=== PATIENT | female | born 1935 | race Caucasian/White ===

== ENCOUNTER 2018-09-13 09:03 | Observation (INO) | payer MEDICARE ==
[2018-09-13] MEDS: morphine 2 MG INJ IV (11:37)
[2018-09-13] MEDS: ONDANSETRON 4 MG INJ IV (11:37)
[2018-09-13 11:58] LABS: ADD MAN DIFF? NO
[2018-09-13 12:01] LABS: WHITE BLOOD COUNT 7.1 10^3/ul (4.8-10.8)
[2018-09-13 12:01] LABS: BASOPHILS % 0.4 % (0.0-2.0); EOSINOPHILS # 0.1 10^3/ul (0.0-0.5); HEMATOCRIT 39.8 % (37.0-47.0); HEMOGLOBIN 12.7 g/dl (12.0-16.0); LYMPHOCYTES # 1.6 10^3/ul (0.8-2.9); LYMPHOCYTES % 23.1 % (15.0-51.0); MEAN CORPUSCULAR HEMOGLOBIN 30.6 pg (29.0-33.0); MEAN CORPUSCULAR HGB CONC 31.9 g/dl (32.0-37.0); MEAN CORPUSCULAR VOLUME 95.9 fl (82.0-101.0); MEAN PLATELET VOLUME 10.6 fl (7.4-10.4); MONOCYTE # 0.9 10^3/ul (0.3-0.9); NEUTROPHIL # 4.4 10^3/ul (1.6-7.5); NEUTROPHILS % 61.8 % (39.0-77.0); PLATELET COUNT 324 10^3/UL (140-415); RED BLOOD COUNT 4.15 10^6/ul (4.20-5.40); RED CELL DISTRIBUTION WIDTH 13.2 % (11.5-14.5)
[2018-09-13 12:07] LABS: ANION GAP 12 (5-13); BLOOD UREA NITROGEN 22 mg/dl (7-20); CALCIUM 10.5 mg/dl (8.4-10.2); CARBON DIOXIDE 23 mmol/L (21-31); CHLORIDE 106 mmol/L (97-110); GLUCOSE 178 mg/dl (70-220); POTASSIUM 5.2 mmol/L (3.5-5.1); SODIUM 141 mmol/L (135-144)
[2018-09-13] MEDS ORDERED: MAGNESIUM HYDROXIDE 30ML CUP PO (14:30)
[2018-09-13] MEDS ORDERED: NACL 0.9% 3 ML SYG IV (14:30)
[2018-09-13] MEDS ORDERED: NITROGLYCERIN (SL) 0.4 MG TAB SL (14:30)
[2018-09-13] MEDS ORDERED: DOCUSATE SODIUM 100 MG CAP PO (14:30)
[2018-09-13] MEDS ORDERED: ACETAMINOPHEN 325 MG TAB PO (14:30)
[2018-09-13 14:42] LABS: ADD UMIC YES; UR ASCORBIC ACID NEGATIVE (NEGATIVE); UR BILIRUBIN (Dip) NEGATIVE (NEGATIVE); UR BLOOD (Dip) NEGATIVE (NEGATIVE); UR BUDDING YEAST FEW /HPF (NONE SEEN); UR CLARITY CLEAR (CLEAR); UR COLOR COLORLESS (YELLOW); UR GLUCOSE (Dip) 3+ mg/dL (NEGATIVE); UR KETONES (Dip) NEGATIVE (NEGATIVE); UR LEUKOCYTE ESTERASE (Dip) TRACE Leu/ul (NEGATIVE); UR NITRITE (Dip) NEGATIVE (NEGATIVE); UR RBC 1 /HPF (0-5); UR SPECIFIC GRAVITY (Dip) 1.011 (1.003-1.030); UR TOTAL PROTEIN (Dip) NEGATIVE (NEGATIVE); UR UROBILINOGEN (Dip) NEGATIVE (NEGATIVE); UR WBC 17 /HPF (0-5)
[2018-09-13] MEDS ORDERED: GLUCAGON 1 MG INJ IM (15:30)
[2018-09-13] MEDS ORDERED: GLUCOSE GEL 15 GRAM TUBE PO (15:30)
[2018-09-13] MEDS ORDERED: GLUCOSE GEL 15 GRAM TUBE BUCCAL (15:30)
[2018-09-13] MEDS ORDERED: DEXTROSE 50% 50 ML SYRINGE IV ×2 (15:30)
[2018-09-13] MEDS: INSULIN ASPART [NOVOLOG] 3 ML PEN SC ×2 (18:00→21:16)
[2018-09-13] MEDS: ACCU-CHEK XX ×3 (18:05→21:00)
[2018-09-13] MEDS: metFORMIN 500 MG TAB PO (18:06)
[2018-09-13] MEDS: ATORVASTATIN 40 MG TAB PO (18:34)
[2018-09-13] MEDS: REPAGLINIDE 2 MG TAB PO (18:34)
[2018-09-13] MEDS: HYDROCODONE/APAP (5/325) TAB PO (21:07)
[2018-09-13] MEDS: TOLTERODINE (SR) 4 MG CAP PO (21:12)
[2018-09-13] MEDS: FAMOTIDINE 20 MG TAB PO (21:13)
[2018-09-13] MEDS: AZATHIOPRINE 50 MG TAB PO (21:13)
[2018-09-13] MEDS: HEPARIN 5,000 UNIT/1 ML VIAL SC (21:14)
[2018-09-13] MEDS: INSULIN GLARGINE [LANTus] (100 UNITS/ML) SYG SC (21:15)
[2018-09-13] MEDS: LISINOPRIL 20 MG TAB PO (21:20)
[2018-09-13] MEDS: AMLODIPINE 5 MG TAB PO (21:20)
[2018-09-13] MEDS: DIAZEPAM 5 MG TAB PO (22:30)
[2018-09-13] MEDS: LIOTHYRONINE 25 MCG TAB PO (22:30)
[2018-09-14] MEDS: ACCU-CHEK XX ×8 (02:00→21:00)
[2018-09-14] MEDS: ACETAMINOPHEN 325 MG TAB PO (02:49)
[2018-09-14 06:09] LABS: ADD MAN DIFF? NO
[2018-09-14 06:23] LABS: WHITE BLOOD COUNT 5.4 10^3/ul (4.8-10.8)
[2018-09-14 06:23] LABS: BASOPHILS % 0.6 % (0.0-2.0); EOSINOPHILS # 0.1 10^3/ul (0.0-0.5); EOSINOPHILS % 1.8 % (0.0-7.0); HEMATOCRIT 35.6 % (37.0-47.0); HEMOGLOBIN 11.5 g/dl (12.0-16.0); LYMPHOCYTES # 1.3 10^3/ul (0.8-2.9); LYMPHOCYTES % 23.4 % (15.0-51.0); MEAN CORPUSCULAR HGB CONC 32.3 g/dl (32.0-37.0); MEAN PLATELET VOLUME 10.7 fl (7.4-10.4); MONOCYTES % 17.5 % (0.0-11.0); PLATELET COUNT 274 10^3/UL (140-415); RED BLOOD COUNT 3.71 10^6/ul (4.20-5.40); RED CELL DISTRIBUTION WIDTH 12.9 % (11.5-14.5)
[2018-09-14] MEDS: LEVOTHYROXINE 75 MCG TAB PO (06:37)
[2018-09-14] MEDS: HYDROCHLOROTHIAZIDE 12.5 MG CAP PO (06:37)
[2018-09-14] MEDS: CYANOCOBALAMIN 500 MCG TAB PO (06:37)
[2018-09-14 06:49] LABS: ALANINE AMINOTRANSFERASE 9 IU/L (13-69); ALBUMIN 3.8 g/dl (3.3-4.9); ALBUMIN/GLOBULIN RATIO 1.18; ALKALINE PHOSPHATASE 42 IU/L (42-121); ANION GAP 11 (5-13); ASPARTATE AMINO TRANSFERASE 27 IU/L (15-46); BILIRUBIN,INDIRECT 0.2 mg/dl (0-1.1); BILIRUBIN,TOTAL 0.2 mg/dl (0.2-1.3); BLOOD UREA NITROGEN 24 mg/dl (7-20); CALCIUM 9.4 mg/dl (8.4-10.2); CARBON DIOXIDE 24 mmol/L (21-31); CHLORIDE 104 mmol/L (97-110); CREATININE 1.44 mg/dl (0.44-1.00); GLUCOSE 124 mg/dl (70-220); POTASSIUM 4.7 mmol/L (3.5-5.1); SODIUM 139 mmol/L (135-144)
[2018-09-14 07:26] LABS: HEMOGLOBIN A1C 13.5 % (0-5.9)
[2018-09-14] MEDS: REPAGLINIDE 2 MG TAB PO ×3 (08:00→17:49)
[2018-09-14] MEDS: INSULIN ASPART [NOVOLOG] 3 ML PEN SC ×4 (08:00→21:00)
[2018-09-14] MEDS: metFORMIN 500 MG TAB PO ×3 (08:00→17:49)
[2018-09-14] MEDS ORDERED: COPPER GLUCONATE 2 MG PO (09:00)
[2018-09-14] MEDS ORDERED: CALCIUM CITRATE 950 MG XX (09:00)
[2018-09-14] MEDS: EMPAGLIFLOZIN 10 MG TABLET PO (09:21)
[2018-09-14] MEDS: AZATHIOPRINE 50 MG TAB PO ×2 (09:21→22:07)
[2018-09-14] MEDS: LINAGLIPTIN 5 MG TABLET PO (09:21)
[2018-09-14] MEDS: CALCIUM CARBONATE 1.25 GM TAB PO (09:22)
[2018-09-14] MEDS: AMLODIPINE 5 MG TAB PO ×2 (09:22→22:08)
[2018-09-14] MEDS: HEPARIN 5,000 UNIT/1 ML VIAL SC ×2 (09:24→22:17)
[2018-09-14] MEDS: LIOTHYRONINE 25 MCG TAB PO ×2 (09:24→22:08)
[2018-09-14] MEDS: predniSONE 1 MG TAB PO ×2 (09:26→09:28)
[2018-09-14] MEDS: SOD CHLORIDE 0.9% 1,000 ML IV ×2 (10:21→21:30)
[2018-09-14] MEDS: HYDROCODONE/APAP (5/325) TAB PO ×2 (16:37→22:09)
[2018-09-14] MEDS: ATORVASTATIN 40 MG TAB PO (22:07)
[2018-09-14] MEDS: FAMOTIDINE 20 MG TAB PO (22:07)
[2018-09-14] MEDS: TOLTERODINE (SR) 4 MG CAP PO (22:08)
[2018-09-14] MEDS: LISINOPRIL 20 MG TAB PO (22:09)
[2018-09-14] MEDS: INSULIN GLARGINE [LANTus] (100 UNITS/ML) SYG SC (22:19)
[2018-09-15] MEDS: SOD CHLORIDE 0.9% 1,000 ML IV ×4 (00:37→22:30)
[2018-09-15] MEDS: ACCU-CHEK XX ×8 (02:00→21:00)
[2018-09-15 05:27] LABS: ADD MAN DIFF? NO
[2018-09-15] MEDS: HYDROCODONE/APAP (5/325) TAB PO (05:31)
[2018-09-15 05:33] LABS: WHITE BLOOD COUNT 5.1 10^3/ul (4.8-10.8)
[2018-09-15 05:33] LABS: BASOPHILS % 0.2 % (0.0-2.0); EOSINOPHILS # 0.1 10^3/ul (0.0-0.5); EOSINOPHILS % 1.4 % (0.0-7.0); HEMOGLOBIN 10.9 g/dl (12.0-16.0); LYMPHOCYTES # 1.7 10^3/ul (0.8-2.9); LYMPHOCYTES % 32.4 % (15.0-51.0); MEAN CORPUSCULAR HEMOGLOBIN 31.1 pg (29.0-33.0); MEAN CORPUSCULAR HGB CONC 32.1 g/dl (32.0-37.0); MEAN CORPUSCULAR VOLUME 96.9 fl (82.0-101.0); MEAN PLATELET VOLUME 10.1 fl (7.4-10.4); MONOCYTES % 18.7 % (0.0-11.0); NEUTROPHIL # 2.4 10^3/ul (1.6-7.5); NEUTROPHILS % 46.7 % (39.0-77.0); PLATELET COUNT 275 10^3/UL (140-415); RED BLOOD COUNT 3.51 10^6/ul (4.20-5.40); RED CELL DISTRIBUTION WIDTH 12.8 % (11.5-14.5)
[2018-09-15 06:00] LABS: ANION GAP 11 (5-13); BLOOD UREA NITROGEN 28 mg/dl (7-20); CALCIUM 9.3 mg/dl (8.4-10.2); CARBON DIOXIDE 23 mmol/L (21-31); CHLORIDE 107 mmol/L (97-110); GLUCOSE 84 mg/dl (70-220); POTASSIUM 4.5 mmol/L (3.5-5.1); SODIUM 141 mmol/L (135-144)
[2018-09-15] MEDS: CYANOCOBALAMIN 500 MCG TAB PO (06:30)
[2018-09-15] MEDS: HYDROCHLOROTHIAZIDE 12.5 MG CAP PO (06:31)
[2018-09-15] MEDS: LEVOTHYROXINE 75 MCG TAB PO (06:31)
[2018-09-15] MEDS: INSULIN ASPART [NOVOLOG] 3 ML PEN SC ×4 (08:00→21:00)
[2018-09-15] MEDS: REPAGLINIDE 2 MG TAB PO ×3 (08:05→18:10)
[2018-09-15] MEDS: predniSONE 1 MG TAB PO (08:06)
[2018-09-15] MEDS: CALCIUM CARBONATE 1.25 GM TAB PO (08:06)
[2018-09-15] MEDS: metFORMIN 500 MG TAB PO ×3 (08:06→18:10)
[2018-09-15] MEDS: AZATHIOPRINE 50 MG TAB PO ×2 (08:06→21:27)
[2018-09-15] MEDS: LIOTHYRONINE 25 MCG TAB PO ×2 (08:06→21:25)
[2018-09-15] MEDS: EMPAGLIFLOZIN 10 MG TABLET PO (08:06)
[2018-09-15] MEDS: LINAGLIPTIN 5 MG TABLET PO (08:06)
[2018-09-15] MEDS: AMLODIPINE 5 MG TAB PO ×2 (08:07→21:27)
[2018-09-15] MEDS: HEPARIN 5,000 UNIT/1 ML VIAL SC ×2 (08:12→21:43)
[2018-09-15] MEDS ORDERED: TOVIAZ 8 MG PO (21:00)
[2018-09-15] MEDS: ATORVASTATIN 40 MG TAB PO (21:25)
[2018-09-15] MEDS: LISINOPRIL 20 MG TAB PO (21:27)
[2018-09-15] MEDS: FAMOTIDINE 20 MG TAB PO (21:27)
[2018-09-15] MEDS: TOVIAZ 8 MG PO (21:32)
[2018-09-15] MEDS: INSULIN GLARGINE [LANTus] (100 UNITS/ML) SYG SC (21:40)
[2018-09-16] MEDS: TOVIAZ 8 MG PO ×2 (00:40→21:06)
[2018-09-16] MEDS: ACCU-CHEK XX ×8 (02:00→21:00)
[2018-09-16] MEDS: SOD CHLORIDE 0.9% 1,000 ML IV ×2 (02:07→11:00)
[2018-09-16] MEDS: HYDROCODONE/APAP (5/325) TAB PO ×2 (02:16→13:46)
[2018-09-16 05:45] LABS: ADD MAN DIFF? NO
[2018-09-16 05:53] LABS: BASOPHILS % 0.3 % (0.0-2.0); EOSINOPHILS # 0.1 10^3/ul (0.0-0.5); EOSINOPHILS % 1.1 % (0.0-7.0); HEMATOCRIT 33.9 % (37.0-47.0); HEMOGLOBIN 10.9 g/dl (12.0-16.0); LYMPHOCYTES # 1.4 10^3/ul (0.8-2.9); LYMPHOCYTES % 23.5 % (15.0-51.0); MEAN CORPUSCULAR HEMOGLOBIN 31.1 pg (29.0-33.0); MEAN CORPUSCULAR HGB CONC 32.2 g/dl (32.0-37.0); MEAN CORPUSCULAR VOLUME 96.9 fl (82.0-101.0); MEAN PLATELET VOLUME 10.6 fl (7.4-10.4); MONOCYTES % 16.8 % (0.0-11.0); NEUTROPHIL # 3.6 10^3/ul (1.6-7.5); PLATELET COUNT 220 10^3/UL (140-415); RED CELL DISTRIBUTION WIDTH 12.8 % (11.5-14.5)
[2018-09-16 05:53] LABS: WHITE BLOOD COUNT 6.1 10^3/ul (4.8-10.8)
[2018-09-16] MEDS: LEVOTHYROXINE 75 MCG TAB PO (06:01)
[2018-09-16] MEDS: CYANOCOBALAMIN 500 MCG TAB PO (06:01)
[2018-09-16] MEDS: HYDROCHLOROTHIAZIDE 12.5 MG CAP PO (06:07)
[2018-09-16 06:49] LABS: ANION GAP 13 (5-13); BLOOD UREA NITROGEN 23 mg/dl (7-20); CALCIUM 9.9 mg/dl (8.4-10.2); CARBON DIOXIDE 20 mmol/L (21-31); CHLORIDE 108 mmol/L (97-110); CREATININE 0.97 mg/dl (0.44-1.00); GLUCOSE 86 mg/dl (70-220); POTASSIUM 4.2 mmol/L (3.5-5.1); SODIUM 141 mmol/L (135-144)
[2018-09-16] MEDS: INSULIN ASPART [NOVOLOG] 3 ML PEN SC ×4 (08:00→21:00)
[2018-09-16] MEDS: metFORMIN 500 MG TAB PO ×3 (08:50→18:00)
[2018-09-16] MEDS: REPAGLINIDE 2 MG TAB PO ×3 (08:50→17:30)
[2018-09-16] MEDS: CALCIUM CARBONATE 1.25 GM TAB PO (08:50)
[2018-09-16] MEDS: LINAGLIPTIN 5 MG TABLET PO (08:50)
[2018-09-16] MEDS: AZATHIOPRINE 50 MG TAB PO ×2 (08:51→21:06)
[2018-09-16] MEDS: EMPAGLIFLOZIN 10 MG TABLET PO (08:51)
[2018-09-16] MEDS: AMLODIPINE 5 MG TAB PO ×2 (08:51→21:00)
[2018-09-16] MEDS: predniSONE 1 MG TAB PO (08:52)
[2018-09-16] MEDS: LIOTHYRONINE 25 MCG TAB PO ×2 (08:52→21:06)
[2018-09-16] MEDS: HEPARIN 5,000 UNIT/1 ML VIAL SC ×2 (08:53→21:10)
[2018-09-16] MEDS: ONDANSETRON 4 MG TAB PO (17:59)
[2018-09-16] MEDS: GLUCOSE GEL 15 GRAM TUBE PO (18:30)
[2018-09-16] MEDS: LISINOPRIL 20 MG TAB PO (21:00)
[2018-09-16] MEDS ORDERED: TOVIAZ 8 MG PO (21:00)
[2018-09-16] MEDS: ATORVASTATIN 40 MG TAB PO (21:07)
[2018-09-16] MEDS: FAMOTIDINE 20 MG TAB PO (21:07)
[2018-09-16] MEDS: INSULIN GLARGINE [LANTus] (100 UNITS/ML) SYG SC (21:09)
[2018-09-17] MEDS: ACCU-CHEK XX ×5 (02:00→14:00)
[2018-09-17] MEDS: LEVOTHYROXINE 75 MCG TAB PO (06:10)
[2018-09-17] MEDS: SOD CHLORIDE 0.9% 1,000 ML IV (06:10)
[2018-09-17] MEDS: CYANOCOBALAMIN 500 MCG TAB PO (06:10)
[2018-09-17] MEDS: INSULIN ASPART [NOVOLOG] 3 ML PEN SC ×2 (08:00→13:25)
[2018-09-17] MEDS: predniSONE 1 MG TAB PO (09:12)
[2018-09-17] MEDS: CALCIUM CARBONATE 1.25 GM TAB PO (09:12)
[2018-09-17] MEDS: LIOTHYRONINE 25 MCG TAB PO (09:12)
[2018-09-17] MEDS: EMPAGLIFLOZIN 10 MG TABLET PO (09:13)
[2018-09-17] MEDS: metFORMIN 500 MG TAB PO (09:13)
[2018-09-17] MEDS: REPAGLINIDE 1 MG TAB PO ×2 (09:13→13:23)
[2018-09-17] MEDS: LINAGLIPTIN 5 MG TABLET PO (09:14)
[2018-09-17] MEDS: AZATHIOPRINE 50 MG TAB PO (09:14)
[2018-09-17] MEDS: AMLODIPINE 5 MG TAB PO (09:15)
[2018-09-17] MEDS: HEPARIN 5,000 UNIT/1 ML VIAL SC (09:17)
[2018-09-17] MEDS: TRIMETHOBENZAMIDE 100 MG/ML VIAL IM (16:23)
== END 2018-09-17 17:05 ==
LOC: E/R 09:03 → 2NE 14:19
DX: S20.212A Contusion of left front wall of thorax, initial encounter (principal); R42 Dizziness and giddiness; I10 Essential (primary) hypertension; E78.5 Hyperlipidemia, unspecified; E11.9 Type 2 diabetes mellitus without complications; E03.9 Hypothyroidism, unspecified; Z79.4 Long term (current) use of insulin; Z79.82 Long term (current) use of aspirin; E86.0 Dehydration; N17.9 Acute kidney failure, unspecified; L94.8 Other specified localized connective tissue disorders; N39.41 Urge incontinence; W19.XXXA Unspecified fall, initial encounter
CPT/HCPCS: 70450; 70552; 71046; 71250; 72125; 72146; 72148; 72156; 80048; 80053; 81001; 82962; 83036; 84443; 85025; 87086; 93005; 96374; 96375; 97116; 97163; 97167; 97530; 99217; 99285-25; G0378

== ENCOUNTER 2018-09-17 17:10 | Inpatient (IN) | payer MEDICARE ==
[2018-09-17] MEDS ORDERED: ONDANSETRON (ODT) 4 MG TAB ODT (18:00)
[2018-09-17] MEDS ORDERED: ACETAMINOPHEN 325 MG TAB PO (18:00)
[2018-09-17] MEDS ORDERED: LOPERAMIDE 2 MG CAP PO (18:00)
[2018-09-17] MEDS ORDERED: LACTULOSE 30ML CUP PO (18:00)
[2018-09-17] MEDS ORDERED: MAGNESIUM HYDROXIDE 30ML CUP PO (18:00)
[2018-09-17] MEDS ORDERED: PENDING SANTYL ORDER FOR WOUND CARE XX (18:00)
[2018-09-17] MEDS ORDERED: BISACODYL 10 MG SUPP PR (18:00)
[2018-09-17] MEDS ORDERED: DEXTROSE 50% 50 ML SYRINGE IV ×2 (20:00)
[2018-09-17] MEDS ORDERED: GLUCOSE GEL 15 GRAM TUBE BUCCAL (20:00)
[2018-09-17] MEDS ORDERED: GLUCAGON 1 MG INJ IM (20:00)
[2018-09-17] MEDS ORDERED: GLUCOSE GEL 15 GRAM TUBE PO ×2 (20:00)
[2018-09-17] MEDS: HYDROCODONE/APAP (5/325) TAB PO (20:40)
[2018-09-17] MEDS: ACCU-CHEK XX (22:00)
[2018-09-17] MEDS: INSULIN ASPART [NOVOLOG] 3 ML PEN SC (22:00)
[2018-09-17] MEDS: SENNA TAB PO (22:00)
[2018-09-17] MEDS: AZATHIOPRINE 50 MG TAB PO (22:19)
[2018-09-17] MEDS: LIOTHYRONINE 25 MCG TAB PO (22:20)
[2018-09-17] MEDS: TOVIAZ 8 MG PO (22:21)
[2018-09-17] MEDS: ATORVASTATIN 40 MG TAB PO (22:22)
[2018-09-17] MEDS: AMLODIPINE 5 MG TAB PO (22:25)
[2018-09-17] MEDS: LISINOPRIL 20 MG TAB PO (22:26)
[2018-09-17] MEDS: HEPARIN 5,000 UNIT/1 ML VIAL SC (22:27)
[2018-09-17] MEDS: INSULIN GLARGINE [LANTus] (100 UNITS/ML) SYG SC (22:51)
[2018-09-18] MEDS ORDERED: NITROGLYCERIN (SL) 0.4 MG TAB SL (00:30)
[2018-09-18 00:49] LABS: ADD UMIC YES; UR ASCORBIC ACID NEGATIVE (NEGATIVE); UR BACTERIA FEW /HPF (NONE SEEN); UR BILIRUBIN (Dip) NEGATIVE (NEGATIVE); UR BLOOD (Dip) 1+ mg/dL (NEGATIVE); UR BUDDING YEAST MANY /HPF (NONE SEEN); UR CLARITY SLIGHTLY CLOUDY (CLEAR); UR COLOR YELLOW (YELLOW); UR GLUCOSE (Dip) 3+ mg/dL (NEGATIVE); UR KETONES (Dip) TRACE mg/dL (NEGATIVE); UR LEUKOCYTE ESTERASE (Dip) 2+ Leu/ul (NEGATIVE); UR NITRITE (Dip) NEGATIVE (NEGATIVE); UR RBC 2 /HPF (0-5); UR SPECIFIC GRAVITY (Dip) 1.012 (1.003-1.030); UR TOTAL PROTEIN (Dip) NEGATIVE (NEGATIVE); UR UROBILINOGEN (Dip) NEGATIVE (NEGATIVE); UR WBC 44 /HPF (0-5)
[2018-09-18] MEDS ORDERED: DOCUSATE SODIUM 100 MG CAP PO (02:00)
[2018-09-18] MEDS: LEVOTHYROXINE 75 MCG TAB PO (06:36)
[2018-09-18 06:59] LABS: ADD MAN DIFF? NO
[2018-09-18 07:11] LABS: BASOPHILS % 0.3 % (0.0-2.0); EOSINOPHILS # 0.1 10^3/ul (0.0-0.5); EOSINOPHILS % 1.7 % (0.0-7.0); HEMATOCRIT 36.5 % (37.0-47.0); HEMOGLOBIN 11.4 g/dl (12.0-16.0); LYMPHOCYTES # 1.6 10^3/ul (0.8-2.9); LYMPHOCYTES % 26.1 % (15.0-51.0); MEAN CORPUSCULAR HEMOGLOBIN 30.6 pg (29.0-33.0); MEAN CORPUSCULAR HGB CONC 31.2 g/dl (32.0-37.0); MEAN CORPUSCULAR VOLUME 98.1 fl (82.0-101.0); NEUTROPHIL # 3.3 10^3/ul (1.6-7.5); NEUTROPHILS % 54.4 % (39.0-77.0); PLATELET COUNT 304 10^3/UL (140-415); RED BLOOD COUNT 3.72 10^6/ul (4.20-5.40); RED CELL DISTRIBUTION WIDTH 12.7 % (11.5-14.5)
[2018-09-18 07:22] LABS: ALANINE AMINOTRANSFERASE 19 IU/L (13-69); ALBUMIN 3.8 g/dl (3.3-4.9); ALBUMIN/GLOBULIN RATIO 1.18; ALKALINE PHOSPHATASE 56 IU/L (42-121); ANION GAP 10 (5-13); ASPARTATE AMINO TRANSFERASE 51 IU/L (15-46); BILIRUBIN,INDIRECT 0.2 mg/dl (0-1.1); BILIRUBIN,TOTAL 0.2 mg/dl (0.2-1.3); BLOOD UREA NITROGEN 29 mg/dl (7-20); CALCIUM 9.7 mg/dl (8.4-10.2); CARBON DIOXIDE 27 mmol/L (21-31); CHLORIDE 104 mmol/L (97-110); CREATININE 1.11 mg/dl (0.44-1.00); GLUCOSE 157 mg/dl (70-220); POTASSIUM 4.6 mmol/L (3.5-5.1); SODIUM 141 mmol/L (135-144)
[2018-09-18] MEDS: LIOTHYRONINE 25 MCG TAB PO ×4 (09:00→20:31)
[2018-09-18] MEDS: predniSONE 1 MG TAB PO (09:01)
[2018-09-18] MEDS: AMLODIPINE 5 MG TAB PO ×2 (09:01→21:26)
[2018-09-18] MEDS: CYANOCOBALAMIN 500 MCG TAB PO (09:02)
[2018-09-18] MEDS: CALCIUM CARBONATE 1.25 GM TAB PO (09:02)
[2018-09-18] MEDS: LINAGLIPTIN 5 MG TABLET PO (09:02)
[2018-09-18] MEDS: REPAGLINIDE 1 MG TAB PO ×3 (09:02→18:54)
[2018-09-18] MEDS: ACCU-CHEK XX ×4 (09:03→21:32)
[2018-09-18] MEDS: metFORMIN 500 MG TAB PO ×2 (09:03→18:54)
[2018-09-18] MEDS: INSULIN ASPART [NOVOLOG] 3 ML PEN SC ×4 (09:04→21:00)
[2018-09-18] MEDS: EMPAGLIFLOZIN 10 MG TABLET PO (09:05)
[2018-09-18] MEDS: HEPARIN 5,000 UNIT/1 ML VIAL SC ×2 (09:05→21:29)
[2018-09-18] MEDS: AZATHIOPRINE 50 MG TAB PO ×2 (09:06→21:26)
[2018-09-18] MEDS: HYDROCODONE/APAP (5/325) TAB PO ×2 (09:11→18:58)
[2018-09-18] MEDS: SENNA TAB PO (21:00)
[2018-09-18] MEDS: LISINOPRIL 20 MG TAB PO (21:25)
[2018-09-18] MEDS: ATORVASTATIN 40 MG TAB PO (21:26)
[2018-09-18] MEDS: TOVIAZ 8 MG PO (21:26)
[2018-09-18] MEDS: INSULIN GLARGINE [LANTus] (100 UNITS/ML) SYG SC (21:30)
[2018-09-19] MEDS: LEVOTHYROXINE 75 MCG TAB PO (06:49)
[2018-09-19] MEDS: ACCU-CHEK XX ×4 (07:49→21:00)
[2018-09-19] MEDS: metFORMIN 500 MG TAB PO ×2 (07:51→18:13)
[2018-09-19] MEDS: LIOTHYRONINE 25 MCG TAB PO ×3 (07:53→19:43)
[2018-09-19] MEDS: EMPAGLIFLOZIN 10 MG TABLET PO (07:53)
[2018-09-19] MEDS: INSULIN ASPART [NOVOLOG] 3 ML PEN SC ×4 (07:57→21:00)
[2018-09-19] MEDS: LINAGLIPTIN 5 MG TABLET PO (08:04)
[2018-09-19] MEDS: REPAGLINIDE 1 MG TAB PO ×3 (08:04→18:13)
[2018-09-19] MEDS: CALCIUM CARBONATE 1.25 GM TAB PO (09:00)
[2018-09-19] MEDS: predniSONE 1 MG TAB PO (11:10)
[2018-09-19] MEDS: AMLODIPINE 5 MG TAB PO ×2 (11:10→20:57)
[2018-09-19] MEDS: HYDROCODONE/APAP (5/325) TAB PO (11:10)
[2018-09-19] MEDS: AZATHIOPRINE 50 MG TAB PO ×2 (11:10→20:52)
[2018-09-19] MEDS: CYANOCOBALAMIN 500 MCG TAB PO (11:10)
[2018-09-19] MEDS: HEPARIN 5,000 UNIT/1 ML VIAL SC ×2 (11:15→21:06)
[2018-09-19] MEDS: SENNA TAB PO (20:52)
[2018-09-19] MEDS: LISINOPRIL 20 MG TAB PO (20:54)
[2018-09-19] MEDS: ATORVASTATIN 40 MG TAB PO (20:57)
[2018-09-19] MEDS: TOVIAZ 8 MG PO (20:58)
[2018-09-19] MEDS: INSULIN GLARGINE [LANTus] (100 UNITS/ML) SYG SC (21:06)
[2018-09-20] MEDS: LEVOTHYROXINE 75 MCG TAB PO (06:03)
[2018-09-20] MEDS: ACCU-CHEK XX ×4 (07:05→21:00)
[2018-09-20] MEDS: INSULIN ASPART [NOVOLOG] 3 ML PEN SC ×4 (07:35→21:00)
[2018-09-20] MEDS: AZATHIOPRINE 50 MG TAB PO ×2 (08:40→21:21)
[2018-09-20] MEDS: CALCIUM CARBONATE 1.25 GM TAB PO (08:40)
[2018-09-20] MEDS: metFORMIN 500 MG TAB PO ×2 (08:40→16:41)
[2018-09-20] MEDS: EMPAGLIFLOZIN 10 MG TABLET PO (08:41)
[2018-09-20] MEDS: CYANOCOBALAMIN 500 MCG TAB PO (08:41)
[2018-09-20] MEDS: AMLODIPINE 5 MG TAB PO ×2 (08:42→21:33)
[2018-09-20] MEDS: LINAGLIPTIN 5 MG TABLET PO (08:42)
[2018-09-20] MEDS: predniSONE 1 MG TAB PO (08:42)
[2018-09-20] MEDS: HEPARIN 5,000 UNIT/1 ML VIAL SC ×2 (08:46→21:28)
[2018-09-20] MEDS: REPAGLINIDE 1 MG TAB PO ×3 (08:49→16:41)
[2018-09-20] MEDS: LIOTHYRONINE 25 MCG TAB PO ×2 (11:22→19:59)
[2018-09-20] MEDS: CEPHALEXIN 250 MG CAP PO ×2 (16:41→21:22)
[2018-09-20] MEDS: FLUCONAZOLE 100 MG TAB PO (16:41)
[2018-09-20] MEDS: SENNA TAB PO (21:00)
[2018-09-20] MEDS: TOVIAZ 8 MG PO (21:19)
[2018-09-20] MEDS: ATORVASTATIN 40 MG TAB PO (21:20)
[2018-09-20] MEDS: HYDROCODONE/APAP (5/325) TAB PO (21:21)
[2018-09-20] MEDS: INSULIN GLARGINE [LANTus] (100 UNITS/ML) SYG SC (21:26)
[2018-09-20] MEDS: LISINOPRIL 20 MG TAB PO (21:33)
[2018-09-21] MEDS: LEVOTHYROXINE 75 MCG TAB PO (06:51)
[2018-09-21] MEDS: CEPHALEXIN 250 MG CAP PO ×3 (06:51→21:09)
[2018-09-21] MEDS: INSULIN ASPART [NOVOLOG] 3 ML PEN SC ×4 (07:35→21:00)
[2018-09-21] MEDS: LINAGLIPTIN 5 MG TABLET PO (07:44)
[2018-09-21] MEDS: metFORMIN 500 MG TAB PO ×2 (07:44→17:18)
[2018-09-21] MEDS: EMPAGLIFLOZIN 10 MG TABLET PO (07:45)
[2018-09-21] MEDS: REPAGLINIDE 1 MG TAB PO ×3 (07:47→17:18)
[2018-09-21] MEDS: ACCU-CHEK XX ×4 (07:49→21:00)
[2018-09-21] MEDS: AZATHIOPRINE 50 MG TAB PO ×2 (10:17→21:09)
[2018-09-21] MEDS: AMLODIPINE 5 MG TAB PO ×2 (10:18→21:10)
[2018-09-21] MEDS: FLUCONAZOLE 100 MG TAB PO (10:18)
[2018-09-21] MEDS: CYANOCOBALAMIN 500 MCG TAB PO (10:18)
[2018-09-21] MEDS: CALCIUM CARBONATE 1.25 GM TAB PO (10:18)
[2018-09-21] MEDS: predniSONE 1 MG TAB PO (10:18)
[2018-09-21] MEDS: HEPARIN 5,000 UNIT/1 ML VIAL SC ×2 (10:20→21:22)
[2018-09-21] MEDS: LIOTHYRONINE 25 MCG TAB PO ×2 (11:21→19:48)
[2018-09-21] MEDS: ONDANSETRON (ODT) 4 MG TAB ODT (15:09)
[2018-09-21] MEDS: ATORVASTATIN 40 MG TAB PO (21:09)
[2018-09-21] MEDS: SENNA TAB PO (21:09)
[2018-09-21] MEDS: TOVIAZ 8 MG PO (21:10)
[2018-09-21] MEDS: LISINOPRIL 20 MG TAB PO (21:10)
[2018-09-21] MEDS: INSULIN GLARGINE [LANTus] (100 UNITS/ML) SYG SC (21:22)
[2018-09-21] MEDS: HYDROCODONE/APAP (5/325) TAB PO (21:23)
[2018-09-22] MEDS: LIOTHYRONINE 25 MCG TAB PO ×2 (06:12→19:41)
[2018-09-22] MEDS: CEPHALEXIN 250 MG CAP PO ×3 (06:12→21:10)
[2018-09-22] MEDS: LEVOTHYROXINE 75 MCG TAB PO (06:12)
[2018-09-22] MEDS: ACCU-CHEK XX ×4 (08:02→21:00)
[2018-09-22] MEDS: INSULIN ASPART [NOVOLOG] 3 ML PEN SC ×4 (08:03→21:00)
[2018-09-22] MEDS: HEPARIN 5,000 UNIT/1 ML VIAL SC ×2 (08:04→21:59)
[2018-09-22] MEDS: metFORMIN 500 MG TAB PO ×2 (08:04→17:31)
[2018-09-22 08:05] LABS: ANION GAP 9 (5-13); BLOOD UREA NITROGEN 40 mg/dl (7-20); CALCIUM 9.2 mg/dl (8.4-10.2); CARBON DIOXIDE 22 mmol/L (21-31); CHLORIDE 111 mmol/L (97-110); CREATININE 0.95 mg/dl (0.44-1.00); GLUCOSE 169 mg/dl (70-220); POTASSIUM 5.5 mmol/L (3.5-5.1); SODIUM 142 mmol/L (135-144)
[2018-09-22] MEDS: CALCIUM CARBONATE 1.25 GM TAB PO (08:05)
[2018-09-22] MEDS: EMPAGLIFLOZIN 10 MG TABLET PO (08:05)
[2018-09-22] MEDS: FLUCONAZOLE 100 MG TAB PO (08:05)
[2018-09-22] MEDS: AZATHIOPRINE 50 MG TAB PO ×2 (08:05→21:02)
[2018-09-22] MEDS: AMLODIPINE 5 MG TAB PO ×2 (08:06→21:06)
[2018-09-22] MEDS: CYANOCOBALAMIN 500 MCG TAB PO (08:13)
[2018-09-22] MEDS: predniSONE 1 MG TAB PO (08:13)
[2018-09-22] MEDS: LINAGLIPTIN 5 MG TABLET PO (08:14)
[2018-09-22] MEDS: REPAGLINIDE 1 MG TAB PO ×3 (08:22→17:31)
[2018-09-22] MEDS: METHOCARBAMOL 750 MG TAB PO (10:36)
[2018-09-22] MEDS: HYDROCODONE/APAP (5/325) TAB PO ×2 (15:32→21:07)
[2018-09-22] MEDS: SENNA TAB PO ×2 (21:00→21:07)
[2018-09-22] MEDS: TOVIAZ 8 MG PO (21:01)
[2018-09-22] MEDS: LISINOPRIL 20 MG TAB PO (21:06)
[2018-09-22] MEDS: ATORVASTATIN 40 MG TAB PO (21:06)
[2018-09-22] MEDS: INSULIN GLARGINE [LANTus] (100 UNITS/ML) SYG SC (22:00)
[2018-09-23] MEDS: HYDROCODONE/APAP (5/325) TAB PO ×3 (01:20→21:19)
[2018-09-23] MEDS: LIOTHYRONINE 25 MCG TAB PO ×2 (06:24→19:55)
[2018-09-23] MEDS: LEVOTHYROXINE 75 MCG TAB PO (06:25)
[2018-09-23] MEDS: CEPHALEXIN 250 MG CAP PO ×3 (06:25→21:19)
[2018-09-23] MEDS: ACCU-CHEK XX ×4 (07:05→21:00)
[2018-09-23] MEDS: INSULIN ASPART [NOVOLOG] 3 ML PEN SC ×4 (07:35→21:00)
[2018-09-23 07:50] LABS: ANION GAP 9 (5-13); BLOOD UREA NITROGEN 38 mg/dl (7-20); CALCIUM 9.4 mg/dl (8.4-10.2); CARBON DIOXIDE 23 mmol/L (21-31); CHLORIDE 109 mmol/L (97-110); CREATININE 1.02 mg/dl (0.44-1.00); GLUCOSE 111 mg/dl (70-220); POTASSIUM 4.8 mmol/L (3.5-5.1); SODIUM 141 mmol/L (135-144)
[2018-09-23] MEDS: HEPARIN 5,000 UNIT/1 ML VIAL SC ×2 (08:13→21:22)
[2018-09-23] MEDS: metFORMIN 500 MG TAB PO ×2 (08:14→17:41)
[2018-09-23] MEDS: EMPAGLIFLOZIN 10 MG TABLET PO (08:15)
[2018-09-23] MEDS: REPAGLINIDE 1 MG TAB PO ×3 (08:15→17:41)
[2018-09-23] MEDS: CALCIUM CARBONATE 1.25 GM TAB PO (08:22)
[2018-09-23] MEDS: CYANOCOBALAMIN 500 MCG TAB PO (08:23)
[2018-09-23] MEDS: FLUCONAZOLE 100 MG TAB PO (08:23)
[2018-09-23] MEDS: AMLODIPINE 5 MG TAB PO ×2 (08:23→21:21)
[2018-09-23] MEDS: predniSONE 1 MG TAB PO (08:28)
[2018-09-23] MEDS: LINAGLIPTIN 5 MG TABLET PO (08:32)
[2018-09-23] MEDS: AZATHIOPRINE 50 MG TAB PO ×2 (08:36→21:19)
[2018-09-23] MEDS: ONDANSETRON (ODT) 4 MG TAB ODT (11:07)
[2018-09-23] MEDS: BACLOFEN 10 MG TAB PO ×2 (12:13→21:19)
[2018-09-23] MEDS: SENNA TAB PO (21:19)
[2018-09-23] MEDS: TOVIAZ 8 MG PO (21:19)
[2018-09-23] MEDS: ATORVASTATIN 40 MG TAB PO (21:19)
[2018-09-23] MEDS: LISINOPRIL 20 MG TAB PO (21:21)
[2018-09-23] MEDS: INSULIN GLARGINE [LANTus] (100 UNITS/ML) SYG SC (21:23)
[2018-09-24] MEDS: CEPHALEXIN 250 MG CAP PO ×3 (06:27→22:45)
[2018-09-24] MEDS: LIOTHYRONINE 25 MCG TAB PO ×2 (06:27→20:29)
[2018-09-24] MEDS: LEVOTHYROXINE 75 MCG TAB PO (06:27)
[2018-09-24] MEDS: INSULIN ASPART [NOVOLOG] 3 ML PEN SC ×4 (07:35→21:00)
[2018-09-24] MEDS: EMPAGLIFLOZIN 10 MG TABLET PO (08:14)
[2018-09-24] MEDS: ACCU-CHEK XX ×4 (08:14→21:36)
[2018-09-24] MEDS: LINAGLIPTIN 5 MG TABLET PO (08:14)
[2018-09-24] MEDS: metFORMIN 500 MG TAB PO ×2 (08:15→17:46)
[2018-09-24] MEDS: REPAGLINIDE 1 MG TAB PO ×3 (08:22→18:11)
[2018-09-24] MEDS: AZATHIOPRINE 50 MG TAB PO ×2 (09:03→20:30)
[2018-09-24] MEDS: CALCIUM CARBONATE 1.25 GM TAB PO (09:04)
[2018-09-24] MEDS: FLUCONAZOLE 100 MG TAB PO (09:04)
[2018-09-24] MEDS: predniSONE 1 MG TAB PO (09:05)
[2018-09-24] MEDS: CYANOCOBALAMIN 500 MCG TAB PO (09:05)
[2018-09-24] MEDS: AMLODIPINE 5 MG TAB PO ×2 (09:05→20:30)
[2018-09-24] MEDS: BACLOFEN 10 MG TAB PO ×3 (09:05→20:29)
[2018-09-24] MEDS: HEPARIN 5,000 UNIT/1 ML VIAL SC ×2 (09:07→20:35)
[2018-09-24] MEDS: HYDROCODONE/APAP (5/325) TAB PO (09:13)
[2018-09-24] MEDS: ONDANSETRON (ODT) 4 MG TAB ODT ×2 (12:11→19:16)
[2018-09-24] MEDS: LISINOPRIL 20 MG TAB PO (20:29)
[2018-09-24] MEDS: SENNA TAB PO (20:30)
[2018-09-24] MEDS: TOVIAZ 8 MG PO (20:30)
[2018-09-24] MEDS: ATORVASTATIN 40 MG TAB PO (20:30)
[2018-09-24] MEDS: INSULIN GLARGINE [LANTus] (100 UNITS/ML) SYG SC (20:34)
[2018-09-25] MEDS: CEPHALEXIN 250 MG CAP PO ×3 (06:33→22:00)
[2018-09-25] MEDS: LEVOTHYROXINE 75 MCG TAB PO (06:33)
[2018-09-25] MEDS: ACCU-CHEK XX ×4 (07:05→20:38)
[2018-09-25] MEDS: REPAGLINIDE 1 MG TAB PO ×3 (07:57→17:30)
[2018-09-25] MEDS: metFORMIN 500 MG TAB PO ×2 (07:57→17:35)
[2018-09-25] MEDS: EMPAGLIFLOZIN 10 MG TABLET PO ×2 (08:00→09:54)
[2018-09-25] MEDS: INSULIN ASPART [NOVOLOG] 3 ML PEN SC ×4 (08:10→20:37)
[2018-09-25] MEDS: LIOTHYRONINE 25 MCG TAB PO ×2 (08:18→20:20)
[2018-09-25] MEDS: CYANOCOBALAMIN 500 MCG TAB PO ×2 (09:00→09:55)
[2018-09-25] MEDS: AMLODIPINE 5 MG TAB PO ×3 (09:00→20:15)
[2018-09-25] MEDS: FLUCONAZOLE 100 MG TAB PO ×2 (09:00→09:54)
[2018-09-25] MEDS: LINAGLIPTIN 5 MG TABLET PO ×2 (09:00→09:55)
[2018-09-25] MEDS: CALCIUM CARBONATE 1.25 GM TAB PO ×2 (09:00→09:55)
[2018-09-25] MEDS: predniSONE 1 MG TAB PO ×2 (09:00→09:55)
[2018-09-25] MEDS: BACLOFEN 10 MG TAB PO ×2 (09:00→09:55)
[2018-09-25] MEDS: HEPARIN 5,000 UNIT/1 ML VIAL SC ×3 (09:00→20:22)
[2018-09-25] MEDS: AZATHIOPRINE 50 MG TAB PO ×3 (09:00→20:16)
[2018-09-25 09:12] LABS: ADD MAN DIFF? NO
[2018-09-25 09:16] LABS: WHITE BLOOD COUNT 6.2 10^3/ul (4.8-10.8)
[2018-09-25 09:16] LABS: EOSINOPHILS % 0.5 % (0.0-7.0); HEMATOCRIT 38.5 % (37.0-47.0); HEMOGLOBIN 11.8 g/dl (12.0-16.0); LYMPHOCYTES # 0.9 10^3/ul (0.8-2.9); LYMPHOCYTES % 14.7 % (15.0-51.0); MEAN CORPUSCULAR HEMOGLOBIN 30.3 pg (29.0-33.0); MEAN CORPUSCULAR HGB CONC 30.6 g/dl (32.0-37.0); MEAN CORPUSCULAR VOLUME 98.7 fl (82.0-101.0); MEAN PLATELET VOLUME 10.1 fl (7.4-10.4); MONOCYTE # 0.8 10^3/ul (0.3-0.9); MONOCYTES % 13.3 % (0.0-11.0); NEUTROPHIL # 4.4 10^3/ul (1.6-7.5); PLATELET COUNT 402 10^3/UL (140-415); RED CELL DISTRIBUTION WIDTH 12.5 % (11.5-14.5)
[2018-09-25 09:33] LABS: ALANINE AMINOTRANSFERASE 44 IU/L (13-69); ALBUMIN 4.2 g/dl (3.3-4.9); ALBUMIN/GLOBULIN RATIO 1.07; ALKALINE PHOSPHATASE 82 IU/L (42-121); ANION GAP 12 (5-13); ASPARTATE AMINO TRANSFERASE 88 IU/L (15-46); BILIRUBIN,INDIRECT 0.4 mg/dl (0-1.1); BILIRUBIN,TOTAL 0.4 mg/dl (0.2-1.3); BLOOD UREA NITROGEN 39 mg/dl (7-20); CALCIUM 10.2 mg/dl (8.4-10.2); CARBON DIOXIDE 23 mmol/L (21-31); CHLORIDE 111 mmol/L (97-110); CREATININE 0.94 mg/dl (0.44-1.00); GLUCOSE 225 mg/dl (70-220); POTASSIUM 5.4 mmol/L (3.5-5.1); SODIUM 146 mmol/L (135-144); TOTAL PROTEIN 8.1 g/dl (6.1-8.1)
[2018-09-25 10:24] LABS: ERYTHROCYTE SEDIMENTATION RATE 42 mm/Hr (0-30)
[2018-09-25 10:43] LABS: IONIZED CALCIUM 1.3 mmol/L (1.1-1.4)
[2018-09-25 12:21] LABS: ADD UMIC YES; UR ASCORBIC ACID NEGATIVE (NEGATIVE); UR BILIRUBIN (Dip) NEGATIVE (NEGATIVE); UR BLOOD (Dip) 1+ mg/dL (NEGATIVE); UR CLARITY CLEAR (CLEAR); UR COLOR YELLOW (YELLOW); UR GLUCOSE (Dip) 3+ mg/dL (NEGATIVE); UR KETONES (Dip) TRACE mg/dL (NEGATIVE); UR LEUKOCYTE ESTERASE (Dip) NEGATIVE Leu/ul (NEGATIVE); UR NITRITE (Dip) NEGATIVE (NEGATIVE); UR RBC 1 /HPF (0-5); UR SPECIFIC GRAVITY (Dip) 1.016 (1.003-1.030); UR TOTAL PROTEIN (Dip) NEGATIVE (NEGATIVE); UR UROBILINOGEN (Dip) NEGATIVE (NEGATIVE); UR WBC 2 /HPF (0-5)
[2018-09-25] MEDS ORDERED: LACTATED RINGER'S 500 ML IV ×2 (16:00→16:30)
[2018-09-25] MEDS: LACTATED RINGER'S 500 ML IV (16:53)
[2018-09-25] MEDS: LORAZEPAM 2 MG INJ IV ×2 (17:47→20:23)
[2018-09-25] MEDS: SENNA TAB PO (20:15)
[2018-09-25] MEDS: ATORVASTATIN 40 MG TAB PO (20:15)
[2018-09-25] MEDS: TOVIAZ 8 MG PO (20:16)
[2018-09-25] MEDS: LISINOPRIL 20 MG TAB PO (20:16)
[2018-09-25] MEDS: INSULIN GLARGINE [LANTus] (100 UNITS/ML) SYG SC (20:23)
[2018-09-25] MEDS: SODIUM CHLORIDE 0.45% 500 ML BAG IV* (22:26)
[2018-09-26] MEDS: LEVOTHYROXINE 75 MCG TAB PO (06:47)
[2018-09-26] MEDS: CEPHALEXIN 250 MG CAP PO ×3 (06:47→20:02)
[2018-09-26 06:59] LABS: ANION GAP 10 (5-13)
[2018-09-26 07:07] LABS: BLOOD UREA NITROGEN 38 mg/dl (7-20); CALCIUM 8.9 mg/dl (8.4-10.2); CARBON DIOXIDE 20 mmol/L (21-31); CHLORIDE 113 mmol/L (97-110); CREATININE 0.82 mg/dl (0.44-1.00); GLUCOSE 116 mg/dl (70-220); POTASSIUM 4.6 mmol/L (3.5-5.1); SODIUM 143 mmol/L (135-144)
[2018-09-26] MEDS: INSULIN ASPART [NOVOLOG] 3 ML PEN SC ×4 (07:35→21:56)
[2018-09-26] MEDS: ACCU-CHEK XX ×4 (08:00→21:00)
[2018-09-26] MEDS: FLUCONAZOLE 100 MG TAB PO (08:14)
[2018-09-26] MEDS: metFORMIN 500 MG TAB PO ×2 (08:14→17:35)
[2018-09-26] MEDS: predniSONE 1 MG TAB PO (08:14)
[2018-09-26] MEDS: AZATHIOPRINE 50 MG TAB PO ×2 (08:14→20:01)
[2018-09-26] MEDS: CYANOCOBALAMIN 500 MCG TAB PO (08:14)
[2018-09-26] MEDS: CALCIUM CARBONATE 1.25 GM TAB PO (08:15)
[2018-09-26] MEDS: LINAGLIPTIN 5 MG TABLET PO (08:15)
[2018-09-26] MEDS: EMPAGLIFLOZIN 10 MG TABLET PO (08:15)
[2018-09-26] MEDS: REPAGLINIDE 1 MG TAB PO ×3 (08:18→17:30)
[2018-09-26] MEDS: LIOTHYRONINE 25 MCG TAB PO (08:19)
[2018-09-26] MEDS: AMLODIPINE 5 MG TAB PO ×2 (08:21→20:03)
[2018-09-26] MEDS: HEPARIN 5,000 UNIT/1 ML VIAL SC ×2 (08:21→21:00)
[2018-09-26] MEDS: LIOTHYRONINE 5 MCG TAB PO (20:00)
[2018-09-26] MEDS: TOVIAZ 8 MG PO (20:01)
[2018-09-26] MEDS: ATORVASTATIN 40 MG TAB PO (20:01)
[2018-09-26] MEDS: LISINOPRIL 20 MG TAB PO (20:04)
[2018-09-26] MEDS: SENNA TAB PO (20:04)
[2018-09-26] MEDS: INSULIN GLARGINE [LANTus] (100 UNITS/ML) SYG SC (20:19)
[2018-09-26] MEDS: predniSONE 2.5 MG TAB PO (21:14)
[2018-09-26] MEDS: LACTATED RINGER'S 500 ML IV (21:24)
[2018-09-27] MEDS: LEVOTHYROXINE 75 MCG TAB PO (06:09)
[2018-09-27] MEDS: CEPHALEXIN 250 MG CAP PO (06:09)
[2018-09-27 07:03] LABS: FREE T4 (FREE THYROXINE) 1.29 ng/dl (0.85-1.93)
[2018-09-27 07:04] LABS: FREE T3 6.67 pg/ml (2.77-5.27)
[2018-09-27 07:20] LABS: THYROID STIMULATING HORMONE < 0.015 MIU/L (0.465-4.680)
[2018-09-27] MEDS: ACCU-CHEK XX ×4 (07:57→20:28)
[2018-09-27] MEDS: LIOTHYRONINE 5 MCG TAB PO ×2 (08:00→20:32)
[2018-09-27] MEDS: EMPAGLIFLOZIN 10 MG TABLET PO (08:03)
[2018-09-27] MEDS: metFORMIN 500 MG TAB PO ×2 (08:03→17:46)
[2018-09-27] MEDS: REPAGLINIDE 1 MG TAB PO ×3 (08:03→17:46)
[2018-09-27] MEDS: INSULIN ASPART [NOVOLOG] 3 ML PEN SC ×4 (08:05→20:28)
[2018-09-27] MEDS: LINAGLIPTIN 5 MG TABLET PO (08:31)
[2018-09-27] MEDS: predniSONE 1 MG TAB PO (09:00)
[2018-09-27] MEDS: CYANOCOBALAMIN 500 MCG TAB PO (10:33)
[2018-09-27] MEDS: AZATHIOPRINE 50 MG TAB PO ×2 (10:34→20:20)
[2018-09-27] MEDS: CALCIUM CARBONATE 1.25 GM TAB PO (10:34)
[2018-09-27] MEDS: FLUCONAZOLE 100 MG TAB PO (10:34)
[2018-09-27] MEDS: AMLODIPINE 5 MG TAB PO ×2 (10:34→20:18)
[2018-09-27] MEDS: HEPARIN 5,000 UNIT/1 ML VIAL SC ×2 (10:48→20:25)
[2018-09-27 12:26] LABS: ADD MAN DIFF? NO
[2018-09-27 13:03] LABS: WHITE BLOOD COUNT 5.3 10^3/ul (4.8-10.8)
[2018-09-27 13:03] LABS: BASOPHILS % 0.2 % (0.0-2.0); EOSINOPHILS % 0.8 % (0.0-7.0); HEMATOCRIT 39.1 % (37.0-47.0); HEMOGLOBIN 11.7 g/dl (12.0-16.0); LYMPHOCYTES # 0.9 10^3/ul (0.8-2.9); LYMPHOCYTES % 16.7 % (15.0-51.0); MEAN CORPUSCULAR HEMOGLOBIN 30.7 pg (29.0-33.0); MEAN CORPUSCULAR HGB CONC 29.9 g/dl (32.0-37.0); MEAN CORPUSCULAR VOLUME 102.6 fl (82.0-101.0); MEAN PLATELET VOLUME 11.8 fl (7.4-10.4); MONOCYTE # 0.7 10^3/ul (0.3-0.9); MONOCYTES % 13.3 % (0.0-11.0); NEUTROPHIL # 3.6 10^3/ul (1.6-7.5); NEUTROPHILS % 68.6 % (39.0-77.0); RED BLOOD COUNT 3.81 10^6/ul (4.20-5.40); RED CELL DISTRIBUTION WIDTH 12.6 % (11.5-14.5)
[2018-09-27 13:04] LABS: PLATELET COUNT 304 10^3/UL (140-415); POSITIVE DIFF @See below
[2018-09-27] MEDS: LISINOPRIL 20 MG TAB PO (20:19)
[2018-09-27] MEDS: ONDANSETRON (ODT) 4 MG TAB ODT (20:19)
[2018-09-27] MEDS: TOVIAZ 8 MG PO (20:20)
[2018-09-27] MEDS: SENNA TAB PO (20:20)
[2018-09-27] MEDS: ATORVASTATIN 40 MG TAB PO (20:20)
[2018-09-27] MEDS: INSULIN GLARGINE [LANTus] (100 UNITS/ML) SYG SC (20:27)
[2018-09-28] MEDS: LEVOTHYROXINE 75 MCG TAB PO (06:23)
[2018-09-28] MEDS: LIOTHYRONINE 5 MCG TAB PO ×2 (07:32→22:12)
[2018-09-28] MEDS: INSULIN ASPART [NOVOLOG] 3 ML PEN SC ×4 (07:35→21:00)
[2018-09-28] MEDS: ACCU-CHEK XX ×4 (07:52→21:00)
[2018-09-28] MEDS: CALCIUM CARBONATE 1.25 GM TAB PO (08:36)
[2018-09-28] MEDS: AZATHIOPRINE 50 MG TAB PO ×2 (08:36→21:17)
[2018-09-28] MEDS: AMLODIPINE 5 MG TAB PO ×2 (08:38→21:17)
[2018-09-28] MEDS: REPAGLINIDE 1 MG TAB PO ×3 (08:39→17:25)
[2018-09-28] MEDS: EMPAGLIFLOZIN 10 MG TABLET PO (08:39)
[2018-09-28] MEDS: LINAGLIPTIN 5 MG TABLET PO (08:39)
[2018-09-28] MEDS: metFORMIN 500 MG TAB PO ×2 (08:39→17:25)
[2018-09-28] MEDS: CYANOCOBALAMIN 500 MCG TAB PO (08:40)
[2018-09-28] MEDS: FLUCONAZOLE 100 MG TAB PO (08:42)
[2018-09-28] MEDS: HEPARIN 5,000 UNIT/1 ML VIAL SC ×2 (08:44→21:20)
[2018-09-28] MEDS: CLOTRIMAZOLE 1% 30 GM CR TOP ×2 (09:00→21:25)
[2018-09-28] MEDS ORDERED: CEFAZOLIN 2 GM/50 ML (PMX) 50 ML IVPB (09:30)
[2018-09-28] MEDS: LEVOFLOXACIN 750 MG TABLET PO (10:23)
[2018-09-28] MEDS: predniSONE 1 MG TAB PO (10:24)
[2018-09-28] MEDS: ONDANSETRON (ODT) 4 MG TAB ODT (10:57)
[2018-09-28] MEDS: SENNA TAB PO (21:00)
[2018-09-28] MEDS: ATORVASTATIN 40 MG TAB PO (21:17)
[2018-09-28] MEDS: LISINOPRIL 20 MG TAB PO (21:17)
[2018-09-28] MEDS: TOVIAZ 8 MG PO (21:18)
[2018-09-28] MEDS: INSULIN GLARGINE [LANTus] (100 UNITS/ML) SYG SC (23:11)
[2018-09-29] MEDS: LEVOFLOXACIN 500 MG TAB PO (05:52)
[2018-09-29] MEDS: LEVOTHYROXINE 75 MCG TAB PO (05:52)
[2018-09-29] MEDS: ACCU-CHEK XX ×4 (07:05→21:04)
[2018-09-29] MEDS: INSULIN ASPART [NOVOLOG] 3 ML PEN SC ×4 (07:35→21:00)
[2018-09-29] MEDS: AZATHIOPRINE 50 MG TAB PO ×2 (08:17→21:00)
[2018-09-29] MEDS: metFORMIN 500 MG TAB PO ×2 (08:17→17:11)
[2018-09-29] MEDS: LINAGLIPTIN 5 MG TABLET PO (08:17)
[2018-09-29] MEDS: CALCIUM CARBONATE 1.25 GM TAB PO (08:17)
[2018-09-29] MEDS: CYANOCOBALAMIN 500 MCG TAB PO (08:18)
[2018-09-29] MEDS: FLUCONAZOLE 100 MG TAB PO (08:18)
[2018-09-29] MEDS: predniSONE 1 MG TAB PO (08:18)
[2018-09-29] MEDS: EMPAGLIFLOZIN 10 MG TABLET PO (08:18)
[2018-09-29] MEDS: AMLODIPINE 5 MG TAB PO ×2 (08:18→21:00)
[2018-09-29] MEDS: REPAGLINIDE 1 MG TAB PO ×3 (08:22→17:11)
[2018-09-29] MEDS: LIOTHYRONINE 5 MCG TAB PO ×2 (08:22→20:00)
[2018-09-29] MEDS: HEPARIN 5,000 UNIT/1 ML VIAL SC ×2 (08:30→21:00)
[2018-09-29] MEDS: CLOTRIMAZOLE 1% 30 GM CR TOP ×2 (09:00→21:00)
[2018-09-29] MEDS: ONDANSETRON (ODT) 4 MG TAB ODT (15:06)
[2018-09-29] MEDS: ATORVASTATIN 40 MG TAB PO (21:00)
[2018-09-29] MEDS: TOVIAZ 8 MG PO (21:00)
[2018-09-29] MEDS: LISINOPRIL 20 MG TAB PO (21:00)
[2018-09-29] MEDS: INSULIN GLARGINE [LANTus] (100 UNITS/ML) SYG SC (21:00)
[2018-09-29] MEDS: SENNA TAB PO (21:00)
[2018-09-30] MEDS: LEVOFLOXACIN 500 MG TAB PO (06:37)
[2018-09-30] MEDS: LEVOTHYROXINE 75 MCG TAB PO (06:37)
[2018-09-30] MEDS: ACCU-CHEK XX ×2 (07:05→11:58)
[2018-09-30] MEDS: EMPAGLIFLOZIN 10 MG TABLET PO (08:36)
[2018-09-30] MEDS: metFORMIN 500 MG TAB PO (08:36)
[2018-09-30] MEDS: LINAGLIPTIN 5 MG TABLET PO (08:37)
[2018-09-30] MEDS: INSULIN ASPART [NOVOLOG] 3 ML PEN SC ×2 (08:39→12:00)
[2018-09-30] MEDS: HEPARIN 5,000 UNIT/1 ML VIAL SC (08:40)
[2018-09-30] MEDS: REPAGLINIDE 1 MG TAB PO ×2 (08:44→12:00)
[2018-09-30] MEDS: LIOTHYRONINE 5 MCG TAB PO (08:54)
[2018-09-30] MEDS: CLOTRIMAZOLE 1% 30 GM CR TOP (09:00)
[2018-09-30] MEDS: AZATHIOPRINE 50 MG TAB PO (09:19)
[2018-09-30] MEDS: FLUCONAZOLE 100 MG TAB PO (09:20)
[2018-09-30] MEDS: predniSONE 1 MG TAB PO (09:20)
[2018-09-30] MEDS: CALCIUM CARBONATE 1.25 GM TAB PO (09:20)
[2018-09-30] MEDS: CYANOCOBALAMIN 500 MCG TAB PO (09:22)
[2018-09-30] MEDS: AMLODIPINE 5 MG TAB PO (09:22)
== END 2018-09-30 13:15 | disposition home or self-care (01) | DRG 552 ==
LOC: VRC 09-24 15:30
PROVIDERS: Physical Medicine & Rehabilitation
PROC: F07Z5ZZ Bed Mobility Treatment (ICD-10-PCS; principal; 2018-09-17)
PROC: F08Z2ZZ Grooming/Personal Hygiene Treatment (ICD-10-PCS; 2018-09-17)
DX: M47.022 Vertebral artery compression syndromes, cervical region (principal); M35.1 Other overlap syndromes; N39.0 Urinary tract infection, site not specified; M48.02 Spinal stenosis, cervical region; M48.061 Spinal stenosis, lumbar region without neurogenic claudication; E11.9 Type 2 diabetes mellitus without complications; S09.90XD Unspecified injury of head, subsequent encounter; I10 Essential (primary) hypertension; E78.5 Hyperlipidemia, unspecified; E03.9 Hypothyroidism, unspecified; R26.89 Other abnormalities of gait and mobility; B96.20 Unspecified Escherichia coli [E. coli] as the cause of diseases classified elsewhere; E87.5 Hyperkalemia; Z86.73 Personal history of transient ischemic attack (TIA), and cerebral infarction without residual deficits; R42 Dizziness and giddiness; F06.31 Mood disorder due to known physiological condition with depressive features
CPT/HCPCS: 70450; 70551; 71045; 80048; 80053; 81001; 82330; 82962; 84439; 84443; 84481; 85025; 85651; 87081; 87086; 92507; 92523; 97110; 97112; 97116; 97150; 97163; 97165; 97530; 97535; 97542

== ENCOUNTER 2018-11-02 09:23 | Emergency (ER) | payer MEDICARE, OTHER ==
[2018-11-02] MEDS: ASPIRIN 81 MG TAB PO (10:13)
[2018-11-02 10:58] LABS: ADD MAN DIFF? NO
[2018-11-02 11:07] LABS: WHITE BLOOD COUNT 7.8 10^3/ul (4.8-10.8)
[2018-11-02 11:07] LABS: BASOPHILS % 0.1 % (0.0-2.0); EOSINOPHILS % 0.3 % (0.0-7.0); HEMATOCRIT 30.8 % (37.0-47.0); HEMOGLOBIN 10.3 g/dl (12.0-16.0); LYMPHOCYTES # 1.1 10^3/ul (0.8-2.9); LYMPHOCYTES % 13.5 % (15.0-51.0); MEAN CORPUSCULAR HEMOGLOBIN 30.1 pg (29.0-33.0); MEAN CORPUSCULAR HGB CONC 33.4 g/dl (32.0-37.0); MEAN CORPUSCULAR VOLUME 90.1 fl (82.0-101.0); MEAN PLATELET VOLUME 10.1 fl (7.4-10.4); MONOCYTE # 1.4 10^3/ul (0.3-0.9); NEUTROPHIL # 5.2 10^3/ul (1.6-7.5); NEUTROPHILS % 66.8 % (39.0-77.0); PLATELET COUNT 285 10^3/UL (140-415); RED BLOOD COUNT 3.42 10^6/ul (4.20-5.40); RED CELL DISTRIBUTION WIDTH 14.9 % (11.5-14.5)
[2018-11-02 11:22] LABS: ANION GAP 13 (5-13); BLOOD UREA NITROGEN 22 mg/dl (7-20); CALCIUM 8.8 mg/dl (8.4-10.2); CARBON DIOXIDE 18 mmol/L (21-31); CHLORIDE 107 mmol/L (97-110); CREATININE 1.26 mg/dl (0.44-1.00); GLUCOSE 91 mg/dl (70-220); POTASSIUM 3.9 mmol/L (3.5-5.1); SODIUM 138 mmol/L (135-144)
[2018-11-02 11:34] LABS: TROPONIN-I < 0.012 ng/ml (0.000-0.120)
[2018-11-02 14:15] LABS: TROPONIN-I < 0.012 ng/ml (0.000-0.120)
== END 2018-11-02 15:06 | disposition home or self-care (01) ==
LOC: E/R 09:23
DX: D64.9 Anemia, unspecified (principal); N17.9 Acute kidney failure, unspecified; I10 Essential (primary) hypertension; E11.9 Type 2 diabetes mellitus without complications; E03.9 Hypothyroidism, unspecified; I25.2 Old myocardial infarction; Z79.84 Long term (current) use of oral hypoglycemic drugs; Z86.73 Personal history of transient ischemic attack (TIA), and cerebral infarction without residual deficits
CPT/HCPCS: 36415; 71045; 80048; 84484; 85025; 93005; 99285-25

== ENCOUNTER 2018-11-27 16:11 | Emergency (ER) | payer MEDICARE, OTHER ==
[2018-11-27] MEDS: KETOROLAC 15 MG INJ IV (17:24)
[2018-11-27] MEDS: SOD CHLORIDE 0.9% 1,000 ML IV (17:24)
[2018-11-27 17:44] LABS: ADD MAN DIFF? NO; BASOPHILS % 0.2 % (0.0-2.0); EOSINOPHILS # 0.1 10^3/ul (0.0-0.5); EOSINOPHILS % 0.6 % (0.0-7.0); HEMATOCRIT 32.6 % (37.0-47.0); HEMOGLOBIN 10.5 g/dl (12.0-16.0); LYMPHOCYTES # 1.4 10^3/ul (0.8-2.9); LYMPHOCYTES % 14.4 % (15.0-51.0); MEAN CORPUSCULAR HEMOGLOBIN 30.4 pg (29.0-33.0); MEAN CORPUSCULAR HGB CONC 32.2 g/dl (32.0-37.0); MEAN CORPUSCULAR VOLUME 94.5 fl (82.0-101.0); MEAN PLATELET VOLUME 9.8 fl (7.4-10.4); MONOCYTE # 0.9 10^3/ul (0.3-0.9); NEUTROPHIL # 6.8 10^3/ul (1.6-7.5); NEUTROPHILS % 71.7 % (39.0-77.0); PLATELET COUNT 316 10^3/UL (140-415); RED BLOOD COUNT 3.45 10^6/ul (4.20-5.40); RED CELL DISTRIBUTION WIDTH 16.8 % (11.5-14.5)
[2018-11-27 17:44] LABS: WHITE BLOOD COUNT 9.4 10^3/ul (4.8-10.8)
[2018-11-27 18:11] LABS: ALANINE AMINOTRANSFERASE 17 IU/L (13-69); ALBUMIN 4.3 g/dl (3.3-4.9); ALBUMIN/GLOBULIN RATIO 1.19; ALKALINE PHOSPHATASE 103 IU/L (42-121); ANION GAP 15 (5-13); ASPARTATE AMINO TRANSFERASE 19 IU/L (15-46); BILIRUBIN,INDIRECT 0.3 mg/dl (0-1.1); BILIRUBIN,TOTAL 0.3 mg/dl (0.2-1.3); BLOOD UREA NITROGEN 43 mg/dl (7-20); CALCIUM 9.4 mg/dl (8.4-10.2); CARBON DIOXIDE 18 mmol/L (21-31); CHLORIDE 108 mmol/L (97-110); GLUCOSE 156 mg/dl (70-220); LIPASE 58 U/L (23-300); SODIUM 141 mmol/L (135-144); TOTAL PROTEIN 7.9 g/dl (6.1-8.1)
[2018-11-27 18:22] LABS: TROPONIN-I < 0.012 ng/ml (0.000-0.120)
[2018-11-27 19:42] LABS: ADD UMIC YES; UR ASCORBIC ACID NEGATIVE (NEGATIVE); UR BILIRUBIN (Dip) NEGATIVE (NEGATIVE); UR BLOOD (Dip) NEGATIVE (NEGATIVE); UR BUDDING YEAST MANY /HPF (NONE SEEN); UR CLARITY CLEAR (CLEAR); UR COLOR STRAW (YELLOW); UR GLUCOSE (Dip) NEGATIVE (NEGATIVE); UR KETONES (Dip) NEGATIVE (NEGATIVE); UR LEUKOCYTE ESTERASE (Dip) TRACE Leu/ul (NEGATIVE); UR NITRITE (Dip) NEGATIVE (NEGATIVE); UR RBC 2 /HPF (0-5); UR SPECIFIC GRAVITY (Dip) 1.006 (1.003-1.030); UR TOTAL PROTEIN (Dip) NEGATIVE (NEGATIVE); UR UROBILINOGEN (Dip) NEGATIVE (NEGATIVE); UR WBC 16 /HPF (0-5)
[2018-11-27] MEDS: CEPHALEXIN 500 MG CAP PO (20:26)
== END 2018-11-27 21:11 | disposition home or self-care (01) ==
LOC: FTE 16:11
DX: E86.0 Dehydration (principal); R26.0 Ataxic gait; N39.0 Urinary tract infection, site not specified; I10 Essential (primary) hypertension; E03.9 Hypothyroidism, unspecified
CPT/HCPCS: 70450; 71045; 72170; 80053; 81001; 82962; 83690; 84484; 85025; 93005; 96374; 99285-25